=== PATIENT | female | born 2000 | race Caucasian/White ===

== ENCOUNTER 2022-11-09 16:30 | Emergency (ER) | payer BC ==
[~2022-11-09] VITALS: Ht 167.6 cm; Wt 61.2 kg
[2022-11-09 17:32] VITALS: BP_SYST 112
[2022-11-09] MEDS ORDERED: KETOROLAC TROMETHAMINE 60 MG/2 ML VIAL IM ONE (19:15)
[2022-11-09 19:47] LABS: EOSINOPHILS # (AUTO) 0.1 K/uL (0.0-0.4); EOSINOPHILS % (AUTO) 0.5 % (0.0-4.0); HEMOGLOBIN 12.5 g/dL (12.0-16.0); MONOCYTES # (AUTO) 0.9 K/uL (0.0-1.0); PLATELET COUNT (AUTO) 192 K/uL (130-430)
[2022-11-09 19:57] LABS: BASOPHILS % (AUTO) 0.1 % (0.0-2.0); HEMATOCRIT 37.7 % (36-48); LYMPHOCYTES % (AUTO) 24.6 % (20.5-51.5); MEAN CORPUSCULAR HEMOGLOBIN 30 pg (27-31); MEAN CORPUSCULAR HGB CONC 33 % (32-36); MEAN CORPUSCULAR VOLUME 89 fL (79.0-98.0); MONOCYTES % (AUTO) 7.6 % (1.7-9.3); NEUTROPHILS # (AUTO) 8.1 K/uL (1.8-7.7); NEUTROPHILS % (AUTO) 67.2 % (40.0-70.0); RED BLOOD CELL COUNT(AUTO) 4.22 MIL/uL (4.2-6.2); RED CELL DISTRIBUTION WIDTH 12.4 % (9.0-15.0)
[2022-11-09 20:03] LABS: ALANINE AMINOTRANSFERASE 30 U/L (12-78); ALBUMIN 4.3 g/dL (3.4-4.8); AMYLASE 82 U/L (0-100); ANION GAP 8 (5-15); ASPARTATE AMINOTRANSFERASE 21 U/L (10-37); CALCIUM 9.1 mg/dL (8.4-11.0); CHLORIDE 102 mmol/L (98-107); CREATININE 0.76 mg/dL (0.55-1.30); GFR AFRICAN AMERICAN 125 mL/min (>90); GLUCOSE 75 mg/dL (70-99); LIPASE 177 U/L (73-393); TOTAL BILIRUBIN 0.6 mg/dL (0.0-1.0); UREA NITROGEN, BLOOD 12 mg/dL (8-21)
[2022-11-09 20:05] LABS: C-REACTIVE PROTEIN QUANT < 0.2 mg/dL (0-0.5)
== END 2022-11-09 21:21 | disposition left against medical advice (07) ==
LOC: SED 16:30
DX: R10.31 Right lower quadrant pain (principal); R11.2 Nausea with vomiting, unspecified; Z79.899 Other long term (current) drug therapy
CPT/HCPCS: 36415; 76376; 80053; 82150; 83605; 83690; 84703; 85025; 86140; 99281